=== PATIENT | female | born 1965 | race Hispanic/Latino ===

== ENCOUNTER 2017-08-28 11:06 | Outpatient (CLI) | payer OTHER ==
--- NOTE | 2017-08-31 11:23 | MMO ---
BILATERAL SCREENING MAMMOGRAM: Date: 08/28/17 INDICATION: Annual exam. COMPARISON: Prior exam dated 05/15/15. FINDINGS: Interpretation of this exam was assisted with computer-aided detection. The breast parenchyma is predominantly fatty replaced. There are benign-appearing calcifications bilaterally. There is an intramammary lymph node within the upper outer aspect of the left breast, which is stable. No new suspicious mass, cluster of microcalc ifications, or area of architectural distortion is evident. IMPRESSION: BIRADS 2: Benign Finding(s) Recommend routine annual mammographic screening. POS: [facility]
== END 2017-08-28 11:07 | disposition home or self-care (01) ==
LOC: SCSMAMMO 11:06
PROVIDERS: ATTEND Family Medicine
DX: Z12.31 Encounter for screening mammogram for malignant neoplasm of breast (principal)
CPT/HCPCS: 77067